=== PATIENT | female | born 1945 | race Caucasian/White ===

== ENCOUNTER → 2025-04-20 | Outpatient (CLI) | payer MEDICARE, BC ==
[~2025-04-20] MED LIST: ALPR0.25; AMOX875T2; BIMA01SOL; DEXA4TA PO; ELIQ2.5T; FAMO40TA3; GABA-1171; ISOVUE-370 76% 100 ML VIAL As Ordered ONE; LEVO88CA2 PO; LOSA50TA28; NALO4SPR20; ONDA-284 PO; OXYC-517; PRAV40TA85; PRED20TA; PROC10TA5 PO; THERTAB52 PO; TIMOLOL; TRIA1OI; atarax PO
== END ==
LOC: M RAD 16:40
PROVIDERS: ATTEND Student in an Organized Health Care Education/Training Program
DX: C48.2 Malignant neoplasm of peritoneum, unspecified (principal); M16.0 Bilateral primary osteoarthritis of hip; R93.6 Abnormal findings on diagnostic imaging of limbs
CPT/HCPCS: 73701; Q9967